=== PATIENT | female | born 1945 | race Caucasian/White ===

== ENCOUNTER → 2018-05-12 | Outpatient (CLI) | payer OTHER ==
--- NOTE | ~2018-05-12 | 2DMMODE ---
[facility] [employer] [place] [address] 2 D/M-MODE ECHOCARDIOGRAM Name: BRIGIDA HERNANDEZ Room #: REG [facility]#: [id number] Admission: 05/12/18 Attend Phys: Yoshi Anthony MD Discharge: Date of : 45 Date of Service: 05/12/18 1617 Report #: [id number] THIS REPORT FOR: //name// APPROVED REPORT Study performed: 05/12/2018 14:47:12 EXAM: Comprehensive 2D, Doppler, and color-flow Echocardiogram Patient Location: Out-Patient Status: routine BSA: 1.67 HR: 61 bpm BP: 136/82 mmHg Rhythm: NSR Other Information Study Quality: Adequate/low parasternal window Indications Short of breath, pre-op. Hx: HTN, HLP 2D Dimensions RVDd: 28.12 mm LVEF(%): 63.60 (>50%) IVSd: 11.31 (7-11mm) LVOT Diam: 19.17 (18-24mm) LVDd: 34.89 mm PWd: 10.82 (7-11mm) LVDs: 23.13 (25-40mm) Aortic Root: 26.54 mm Nava's LVEF: 63.60 % Volumes Left Atrial Volume (Systole) Single Plane 4CH: 34.62 mL Single Plane 2CH: 42.76 mL LA ESV Index: 24.00 mL/m2 Aortic Valve AoV Peak Sherman.: 2.57 m/s AO Peak Gr.: 26.34 mmHg LVOT Max P.52 mmHg AO Mean Gr.: 14.68 mmHg AO V2 Mean: 1.81 m/s LVOT Max V: 1.37 m/s AO V2 VTI: 55.26 cm HI Vmax: 1.54 cm2 Mitral Valve [facility] [employer] [place] [address] 2 D/M-MODE ECHOCARDIOGRAM Name: BRIGIDA HERNANDEZ Room #: REG [facility].#: [id number] Admission: 05/12/18 Attend Phys: Yoshi Anthony MD Discharge: Date of : 45 Date of Service: 05/12/18 1617 Report #: [id number] E/A Ratio: 0.9 MV Decel. Time: 257.77 ms MV E Max Sherman.: 0.94 m/s MV A Sherman.: 1.07 m/s MV PHT: 74.75 ms IVRT: 72.66 ms Pulmonary Valve PV Peak Sherman.: 1.09 m/s PV Peak Gr.: 4.75 mmHg Pulmonary Vein P Vein S: 0.68 m/s P Vein A: 0.33 m/s P Vein D: 0.60 m/s P Vein A Dur.: 175.3 msec P Vein S/D Ratio: 1.13 Tricuspid Valve TR Peak Sherman.: 2.63 m/s RAP Estimate: 5.00 mmHg TR Peak Gr.: 27.66 mmHg PA Pressure: 33.00 mmHg Left Ventricle The left ventricle is normal size. There is normal LV segmental wall motion. There is normal left ventricular wall thickness. Left ventricular systolic function is normal. LVEF is 55-60%. Mild diastolic dysfunction is present (impaired relaxation pattern). Right Ventricle The right ventricle is normal size. The right ventricular systolic function is normal. Atria The left atrium size is normal. The right atrium size is normal. Aortic Valve Aortic valve is calcified. Trace to mild aortic regurgitation. There is mild valvular aortic stenosis. Calculated aortic valve area is 1.5 cm2 with maximum pressure gradient of 26 mmHg and mean pressure gradient of 15 mmHg. Mitral Valve The mitral valve is normal in structure. Mild mitral regurgitation. Tricuspid Valve [facility] [address] [place] [address] 2 D/M-MODE ECHOCARDIOGRAM Name: BRIGIDA HERNANDEZ Room #: REG [facility]#: [id number] Admission: 05/12/18 Attend Phys: Yoshi Anthony MD Discharge: Date of : 45 Date of Service: 05/12/18 1617 Report #: [id number] The tricuspid valve is normal in structure. Mild tricuspid regurgitation. Estimated PAP is 30-35mmHg. Pulmonic Valve Pulmonic valve is not well visualized. Trace pulmonic regurgitation. Great Vessels The aortic root is normal in size. Ascending aorta is not well visualized. IVC is normal in size and collapses >50% with inspiration. Pericardium There is no pericardial effusion. <Conclusion> The left ventricle is normal size. There is normal left ventricular wall thickness. Left ventricular systolic function is normal. Mild diastolic dysfunction is present (impaired relaxation pattern). The right ventricle is normal size. The left atrium size is normal. There is mild valvular aortic stenosis. Calculated aortic valve area is 1.5 cm2 with maximum pressure gradient of 26 mmHg and mean pressure gradient of 15 mmHg. Mild mitral regurgitation. Mild tricuspid regurgitation. Estimated PAP is 30-35mmHg. <ELECTRONICALLY SIGNED> By: Yoshi Anthony MD 05/12/18 161 16 16 Yoshi Anthony MD /INF
== END ==
LOC: CV
DX: I08.1 Rheumatic disorders of both mitral and tricuspid valves (principal); I10 Essential (primary) hypertension; E78.5 Hyperlipidemia, unspecified

== ENCOUNTER → 2018-10-24 | Outpatient (CLI) | payer OTHER ==
[~2018-10-24] MED LIST: ANTIVERT25 MG PO; ASPIR 8181 MG PO; ATIVAN0.5 MG PO; ATORVASTATIN CA40 MG PO; CARDIZEM LA360 M1 PO; CENTRUM SILVER1 EAC2 PO; GARLIC1000 MG PO
--- NOTE | 2018-10-24 15:28 | 2DMMODE ---
[facility] [place] [address] 2 D/M-MODE ECHOCARDIOGRAM Name: BRIGIDA HERNANDEZ Room #: REG [facility]#: [id number] Admission: 10/24/18 Attend Phys: Yoshi Anthony MD Discharge: Date of : 45 Date of Service: 10/24/18 1527 Report #: [id number] THIS REPORT FOR: //name// APPROVED REPORT Study performed: 10/24/2018 14:01:34 EXAM: Comprehensive 2D, Doppler, and color-flow Echocardiogram Patient Location: Out-Patient Status: routine BSA: 1.69 HR: 66 bpm BP: 132/82 mmHg Rhythm: NSR Other Information Study Quality: Adequate Indications CAD, HTN 2D Dimensions RVDd: 25.70 mm IVSd: 9.10 (7-11mm) LVOT Diam: 18.53 (18-24mm) LVDd: 44.51 mm PWd: 8.22 (7-11mm) Ascending Ao: 28.44 (22-36mm) LVDs: 28.77 (25-40mm) Aortic Root: 27.43 mm IVC: 19.00 mm Volumes Left Atrial Volume (Systole) Single Plane 4CH: 35.84 mL Single Plane 2CH: 26.16 mL LA ESV Index: 20.33 mL/m2 Aortic Valve AoV Peak Sherman.: 2.69 m/s AO Peak Gr.: 29.02 mmHg LVOT Max P.45 mmHg AO Mean Gr.: 14.46 mmHg AO V2 Mean: 1.75 m/s LVOT Max V: 1.27 m/s AO V2 VTI: 58.89 cm HI Vmax: 1.27 cm2 Mitral Valve E/A Ratio: 0.9 [facility] [place] [place] [address] 2 D/M-MODE ECHOCARDIOGRAM Name: MARYBRIGIDA LEE Room #: REG [facility]#: [id number] Admission: 10/24/18 Attend Phys: Yoshi Anthony MD Discharge: Date of : 45 Date of Service: 10/24/18 1527 Report #: [id number] MV Decel. Time: 179.04 ms MV E Max Sherman.: 1.08 m/s MV A Sherman.: 1.21 m/s MV PHT: 51.92 ms IVRT: 100.35 ms Pulmonary Valve PV Peak Sherman.: 0.92 m/s PV Peak Gr.: 3.42 mmHg Pulmonary Vein P Vein S: 0.72 m/s P Vein A: 0.30 m/s P Vein D: 0.40 m/s P Vein A Dur.: 179.9 msec P Vein S/D Ratio: 1.80 Tricuspid Valve TR Peak Sherman.: 2.47 m/s RAP Estimate: 5.00 mmHg TR Peak Gr.: 24.38 mmHg PA Pressure: 29.00 mmHg Left Ventricle The left ventricle is normal size. There is normal left ventricular wall thickness. The left ventricular systolic function is normal. The left ventricular ejection fraction is within the normal range. LVEF is 60-65%. Mild diastolic dysfunction is present (impaired relaxation pattern). Right Ventricle The right ventricle is normal size. The right ventricular systolic function is normal. Atria The left atrium size is normal. The right atrium size is normal. Aortic Valve Aortic valve is calcified. Mild aortic regurgitation. Mild to moderate aortic stenosis. Maximum pressure gradient of 29.02 mmHg and mean pressure gradient of 14.46 mmHg. Mitral Valve The mitral valve is normal in structure. Trace mitral regurgitation. No evidence of mitral valve stenosis. Tricuspid Valve The tricuspid valve is normal in structure. Mild tricuspid regurgitation. Estimated PAP of 29 mmHg. [facility] [address] [place] [address] 2 D/M-MODE ECHOCARDIOGRAM Name: BRIGIDA HERNANDEZ Room #: REG CL [facility]#: [id number] Admission: 10/24/18 Attend Phys: Yoshi Anthony MD Discharge: Date of : 45 Date of Service: 10/24/18 1527 Report #: [id number] Pulmonic Valve Pulmonic valve is not well visualized. Trace to mild pulmonic regurgitation. Great Vessels The aortic root is normal in size. The ascending aorta is normal in size. IVC is normal in size and collapses >50% with inspiration. Pericardium There is no pericardial effusion. <Conclusion> The left ventricle is normal size. There is normal left ventricular wall thickness. The left ventricular systolic function is normal. Mild diastolic dysfunction is present (impaired relaxation pattern). The right ventricle is normal size. The left atrium size is normal. Mild to moderate aortic stenosis. Maximum pressure gradient of 29.02 mmHg and mean pressure gradient of 14.46 mmHg. Mild aortic regurgitation. Trace mitral regurgitation. Mild tricuspid regurgitation. Estimated PAP of 29 mmHg. <ELECTRONICALLY SIGNED> By: Yoshi Anthony MD 10/24/18 1527 1527 1527 Yoshi Anthony MD /INF
== END ==
LOC: CV 07:04
DX: I08.2 Rheumatic disorders of both aortic and tricuspid valves (principal); I25.10 Atherosclerotic heart disease of native coronary artery without angina pectoris; I10 Essential (primary) hypertension; R53.83 Other fatigue